=== PATIENT | male | born 2000 | race Hispanic/Latino ===

== ENCOUNTER 2020-04-04 20:17 | Emergency (ER) | payer SELFPAY ==
[~2020-04-04] VITALS: Ht 180.3 cm; Wt 75.0 kg
[2020-04-04 22:32] VITALS: BP 110/66
== END 2020-04-04 22:32 | disposition home or self-care (01) | DRG 605 ==
LOC: ED 20:17
DX: S90.512A Abrasion, left ankle, initial encounter (principal); F17.210 Nicotine dependence, cigarettes, uncomplicated; W22.8XXA Striking against or struck by other objects, initial encounter; Y93.H3 Activity, building and construction; Y92.89 Other specified places as the place of occurrence of the external cause; Y99.0 Civilian activity done for income or pay